=== PATIENT | female | born 1995 | race American Indian/Alaskan Native ===

== ENCOUNTER 2018-11-21 09:58 | Emergency (ER) | payer OTHER ==
[2018-11-21 10:05] VITALS: BP 108/73
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
== END 2018-11-21 12:40 | disposition home or self-care (01) ==
LOC: ED 09:58
DX: M54.6 Pain in thoracic spine (principal); L60.3 Nail dystrophy; V49.49XA Driver injured in collision with other motor vehicles in traffic accident, initial encounter; Y93.9 Activity, unspecified; Y92.89 Other specified places as the place of occurrence of the external cause; Y99.8 Other external cause status
CPT/HCPCS: 72072